=== PATIENT | male | born 1995 | race African-American/Black ===

== ENCOUNTER 2017-04-02 14:48 | Emergency (ER) | payer SELFPAY ==
[~2017-04-02] VITALS: Ht 167.6 cm; Wt 83.9 kg
[2017-04-02 15:16] VITALS: BP 138/90
[2017-04-02] MEDS ORDERED: metroNIDAZOLE 500 MG TABLET PO ONE (15:30)
[2017-04-02] MEDS ORDERED: cefTRIAXone IM 250 MG VIAL IM ONE (15:30)
[2017-04-02] MEDS ORDERED: AZITHROMYCIN 250 MG TABLET. PO ONE (15:30)
--- NOTE | 2017-04-02 15:33 | PHYS DOC ---
Past Medical History Past Medical History: No Pertinent History Past Surgical History: No Surgical History Alcohol Use: Occasionally Drug Use: Marijuana Adult General Chief Complaint Chief Complaint: PENIS PROBLEM HPI HPI Patient is a 21 year old male presents to the emergency department with a history of painful urination for the last 4 days. Patient states he has a stinging type feeling with pain into the abdominal area. Patient states he has been sexually active with one partner without protection. Patient denies nausea , vomiting, diarrhea denies penile drainage. Review of Systems Review of Systems Constitutional: Denies fever or chills [] Eyes: Denies change in visual acuity, redness, or eye pain [] HENT: Denies nasal congestion or sore throat [] Respiratory: Denies cough or shortness of breath [] Cardiovascular: No additional information not addressed in HPI [] GI: Denies abdominal pain, nausea, vomiting, bloody stools or diarrhea [] : dysuria denies hematuria [] Musculoskeletal: Denies back pain or joint pain [] Integument: Denies rash or skin lesions [] Neurologic: Denies headache, focal weakness or sensory changes [] Endocrine: Denies polyuria or polydipsia [] All other systems were reviewed and found to be within normal limits, except as documented in this note. Current Medications Current Medications Current Medications Medications (Trade) Dose Ordered Sig/Alberto Start Time Stop Time Status Last Admin Dose Admin Azithromycin (Zithromax) 1,000 mg 1X ONCE 04/02/17 15:30 04/02/17 15:31 DC 04/02/17 15:37 1,000 MG Ceftriaxone Sodium (Rocephin Im) 250 mg 1X ONCE 04/02/17 15:30 04/02/17 15:31 DC 04/02/17 15:37 250 MG Metronidazole (Flagyl) 2,000 mg 1X ONCE 04/02/17 15:30 04/02/17 15:31 DC 04/02/17 15:37 2,000 MG Allergies Allergies Allergies Coded Allergies Type Severity Reaction Last Updated Verified No Known Drug Allergies 04/02/17 No Physical Exam Physical Exam Constitutional: Well developed, well nourished, no acute distress, non-toxic appearance. [] HENT: Normocephalic, atraumatic, bilateral external ears normal, oropharynx moist, no oral exudates, nose normal. [] Eyes: PERRLA, EOMI, conjunctiva normal, no discharge. [] Neck: Normal range of motion, no tenderness, supple, no stridor. [] Cardiovascular:Heart rate regular rhythm, no murmur [] Lungs & Thorax: Bilateral breath sounds clear to auscultation [] Skin: Warm, dry, no erythema, no rash. [] Extremities: No tenderness, no cyanosis, no clubbing, ROM intact, no edema. [] Neurologic: Alert and oriented X 3, normal motor function, normal sensory function, no focal deficits noted. [] Psychologic: Affect normal, judgement normal, mood normal. [] Current Patient Data Vital Signs Vital Signs Date Time Temp Pulse Resp B/P (MAP) Pulse Ox O2 Delivery O2 Flow Rate FiO2 04/02/17 15:16 98.3 82 18 98 Room Air 98.3 Lab Values Laboratory Tests Test 04/02/17 16:05 Urine Color Yellow Urine Clarity Clear Urine pH 7.5 Urine Specific [place] 1.025 Urine Protein Negative mg/dL (NEG-TRACE) Urine Glucose (UA) Negative mg/dL (NEG) Urine Ketones (Stick) Negative mg/dL (NEG) Urine Blood Negative (NEG) Urine Nitrite Negative (NEG) Urine Bilirubin Negative (NEG) Urine Urobilinogen Dipstick 0.2 mg/dL (0.2 mg/dL) Urine Leukocyte Esterase Negative (NEG) Urine RBC 0 /HPF (0-2) Urine WBC Occ /HPF (0-4) Urine Squamous Epithelial Cells Occ /LPF Urine Bacteria 0 /HPF (0-FEW) Urine Mucus Slight /LPF EKG EKG [] Radiology/Procedures Radiology/Procedures [] Course & Med Decision Making Course & Med Decision Making Pertinent Labs and Imaging studies reviewed. (See chart for details) Patient will be provided with Rocephin, flagyl and zithromax. Urinalysis was negative for urinary tract infection. Patient was provided with discharge instructions, treatment regimens and follow-up recommendations. Recommended that he return from sexual intercourse for the next 2 weeks. Also recommended him to notify his partners once the results have been notified by phone to him. Patient agrees with discharge instructions, treatment regimens and follow-up recommendations. Signs and symptoms return back to the emergency department has been provided. All questions and concerns been answered at the patients bedside. Patient will be discharged home in stable condition. [] Dragon Disclaimer Dragon Disclaimer This electronic medical record was generated, in whole or in part, using a voice recognition dictation system. Departure Departure Impression: Primary Impression: Concern about STD in male without diagnosis Disposition: 01 HOME, SELF-CARE Condition: STABLE Patient Instructions: Sexually Transmitted Disease, [id number] Additional Instructions: Activity as tolerated Medication as prescribed Refrain from sexual activity for the next 2 weeks If your test results are positive you will be notified by phone. You will need to let you sexual partner know the results were positive. Drink plenty of fluids such as water, and cranberry juice Avoid cranberry juice cocktail, carbonated beverages, citrus fruits, alcohol, and caffeine as these are considered irritants to the bladder Followup with primary care provider in 7-10 days Return to emergency department as needed for signs and symptoms that become worse. KEISHA PENA APRN Apr 02, 2017 15:33
[2017-04-02 16:26] LABS: BILIRUBIN,URINE NEGATIVE (NEG); GLUCOSE,URINE NEGATIVE (NEG); NITRITE,URINE NEGATIVE (NEG); PH,URINE 7.5; PROTEIN,URINE NEGATIVE (NEG-TRACE); UROBILINOGEN,URINE 0.2 mg/dL (0.2 mg/dL)
[2017-04-02 17:02] LABS: RBC,URINE 0 /HPF (0-2)
[2017-04-02 17:03] LABS: BACTERIA,URINE 0 /HPF (0-FEW); SQUAMOUS EPITHELIAL CELL,UR OCC /LPF; WBC,URINE OCC /HPF (0-4)
== END 2017-04-02 17:05 | disposition home or self-care (01) ==
LOC: ER 14:48
DX: Z11.3 Encounter for screening for infections with a predominantly sexual mode of transmission (principal); R30.0 Dysuria; F12.10 Cannabis abuse, uncomplicated
CPT/HCPCS: 81001; 87491; 87591; 96372; 99284; J0696; Q0144